=== PATIENT | female | born 1945 | race American Indian/Alaskan Native ===

== ENCOUNTER 2018-11-25 02:03 | Inpatient (IN) | payer MEDICARE ==
[2018-11-25 09:38] LABS: Chol/HDL Ratio 2.38 %
--- NOTE | 2018-11-25 11:07 | Consultation ---
History of Present Illness - Reason for Consult Consult date: 11/25/18 Medical evaluation for inpatient [facility] - History of Present Illness Patient is a 73 yo woman with a history of hypertension, dyslipidemia, dementia, anxiety disorder, osteoporosis, CAD s/p CABG and I believe Afib on Eliquis (no prior old records in our EMR) who presents to [facility] for behavior modification. She appears calm but poor historian due to vagueness. She denies any pains or symptoms at this time. PMH: as hpi PSH: CABG, LHC SH: she denies tob/etoh use/illicit drug use FH: she denies any serious condition ROS: Constitutional: denies: fever ENT: denies: throat or neck pain Respiratory: denies: cough, shortness of breath Cardiovascular: denies: chest pain Endocrine: denies unexplained weight loss or gain Gastrointestinal: denies: abdominal pain, nausea Genitourinary: denies: dysuria Rectal: denies no incontinence, no bleeding, no itching, no discharge Musculoskeletal: denies swelling, myaglia, muscle weakness Skin: denies: rash Neurological: denies: headache Hematological/Lymphatic: denies: easy bleeding or easy bruising Allergic/Immunologic: no urticaria, no allergic rhinitis, no anaphylaxis Psych: denies SI/HI Medications and Allergies Allergies Allergy/AdvReac Type Severity Reaction Status Date / Time Sulfa (Sulfonamide AdvReac Intermediate Diarrhea Verified 11/25/18 02:52 Antibiotics) donepezil [From Aricept] AdvReac Unknown Unknown Verified 11/25/18 02:53 Home Medications Medication Instructions Recorded Confirmed Last Taken Type ALPRAZolam [Xanax TAB] 1 mg PO BID PRN 11/25/18 11/25/18 Unknown History Acetaminophen/Diphenhydramine mg PO HS PRN 11/25/18 Unknown History Alendronate Sodium [Fosamax] 70 mg PO QWEEK 11/25/18 11/25/18 Unknown History Aspirin EC 81 mg PO DAILY 11/25/18 11/25/18 1 Day Ago History ~11/24/18 81 Dextromethorphan HBr/Quinidine 10 - 20 mg PO Q12HR 11/25/18 11/25/18 Unknown History [Nuedexta 20-10 mg Capsule] Eliquis 5 mg PO BID 11/25/18 11/25/18 1 Day Ago History ~11/24/18 5 mg ISOSORBIDE MONOnitrate [Imdur ER] 30 mg PO DAILY 11/25/18 11/25/18 1 Day Ago History ~11/24/18 30 mg Lisinopril 10 mg PO DAILY 11/25/18 11/25/18 1 Day Ago History ~11/24/18 10 mg Memantine [Namenda] 10 mg PO BID 11/25/18 11/25/18 1 Day Ago History ~11/24/18 Metoprolol Tartrate 25 mg PO BID 11/25/18 11/25/18 1 Day Ago History ~11/24/18 Pravastatin Sodium 40 mg PO QHS 11/25/18 11/25/18 1 Day Ago History ~11/24/18 Quetiapine Fumarate [SEROquel] 25 mg PO BID 11/25/18 11/25/18 1 Day Ago History ~11/24/18 Sennosides Tab [Senokot] 8.6 mg PO PRN 11/25/18 11/25/18 Unknown History hydrALAZINE [Apresoline TAB] 25 mg PO TID 11/25/18 11/25/18 1 Day Ago History ~11/24/18 Exam - Physical Exam Narrative exam: Gen: thin frail, NAD, Awake, Alert, Orientated x 2, missed name of [facility] HEENT: NCAT, EOMI, PERRL, OP Clear Neck: supple, no adenopathy, no thyromegaly, no JVD CVS/Heart: irregular irregular, normal S1S2, pulses present bilaterally Chest/Lungs: CTA B, Symmetrical chest expansion, good air entry bilaterally GI/Abdomen: soft, NTND, good bowel sounds, no guarding or rebound /Bladder: no suprapubic tenderness, no CVA or paraspinal tenderness Extermity/Skin: no c/c/e, no obvious rash MSK: FROM x 4 Neuro: CN 2-12 grossly intact, no new focal deficits Psych: calm - Constitutional Vitals: Temp Pulse Resp BP Pulse Ox 98.0 F 103 H 17 131/62 98 11/25/18 10:10 11/25/18 10:10 11/25/18 10:10 11/25/18 10:10 11/25/18 10:10 Results - Labs Labs: Abnormal lab results 11/25/18 Range/Units 09:05 HDL Cholesterol 68 H (40-59) mg/dL Assessment and Plan Patient is a 73 yo woman with a history of hypertension, dyslipidemia, dementia, anxiety disorder, osteoporosis, CAD s/p CABG and I believe Afib on Eliquis (no prior old records in our EMR) who presents to [facility] for behavior modification. She appears calm but poor historian due to vagueness. She denies any pains or symptoms at this time. Dementia with behavior disturbances: Aricept is listed as an allergy and just on Namenda monotherapy, [facility] to manage Hypertension: continue Metoprolol, hydralazine, imdur, and lisinopril, get baseline Labs Osteoporosis: continue Fosamax Afib: continue Eliquis and Metoprolol, get baseline EKG CAD s/p CABG: continue Asa, metoprolol and statin, get baseline cbc on ASA and Eliquis to screen for anemia Dyslipidemia: continue Statin, check TSH Home medication reconciliation done Thank you for the consult
[2018-11-25] MEDS ORDERED: NON-FORMULARY (Aspirin Ec 81 MG) PO SCH (11:30)
[2018-11-25] MEDS ORDERED: NON-FORMULARY (Lisinopril 10 MG) PO SCH (11:30)
[2018-11-25] MEDS ORDERED: NON-FORMULARY (Metoprolol Tartrate 25 MG) PO SCH (11:30)
[2018-11-25 11:56] LABS: Hematocrit 31.2 % (30.3-42.9); Hemoglobin 9.7 gm/dl (10.1-14.3); Mean Corpuscular HGB Conc 31 % (30-34); Mean Corpuscular Volume 75 fl (79-97); Platelet Count 157 K/mm3 (140-440); Red Blood Count 4.19 M/mm3 (3.65-5.03); Red Cell Distribution Width 18.6 % (13.2-15.2)
[2018-11-25] MEDS ORDERED: SENOKOT PO SCH (12:00)
[2018-11-25 12:03] LABS: Mean Corpuscular Hemoglobin 23 pg (28-32)
[2018-11-25 12:26] LABS: Alanine Aminotransferase 30 units/L (7-56); Albumin 4.1 g/dL (3.9-5); BUN/Creatinine Ratio 20; Blood Urea Nitrogen 16 mg/dL (7-17); Hemolysis Index 3
[2018-11-25] MEDS: APRESOLINE PO SCH ×2 (13:27→21:12)
[2018-11-25] MEDS: ZESTRIL PO SCH (13:27)
[2018-11-25] MEDS: LOPRESSOR PO SCH ×2 (13:37→21:10)
--- NOTE | 2018-11-25 16:59 | History and Physical Report ---
GP History & Physical - History of Present Illness Date of admission: 11/24/18 Date of Examination: 11/25/18 Reason for Admission: Danger to self, Danger to others, Unable to care for self Chief Complaint: I don't know why I am here History of Present Illness: Patient is a 73 yo woman with a history of hypertension, dyslipidemia, dementia, anxiety disorder, osteoporosis, CAD s/p CABG and Afib on Eliquis who presents to [facility] for aggressive behavior, delusions and inability to care for self. The patient is reportedly aggressive towards her at home. is overwhelmed and unable to care for her, hence family is seeking Prison placement. Per medical records, the patient make allegations that her dates other women, he parties 3 to 4 times a week, alleges he left for a constitution party W ed night and did not return for 3 days. In my interview with the patient, she states that she does not know why she is here. She is confused, oriented to place and person, denies SI/HI/AVH. She is suspicious of her plotting against her but did not elaborate. She reports sleeping and eating well. Legal Status: Voluntary Patient Problems: Current Active Problems Dementia, Alzheimer's, with behavior disturbance (Acute) Reaction to Hospitalization: Accepting Substance History - Substance History Drug Use: none Hx Tobacco Use: No Alcohol Use: No Past psychiatric history - Past Medical History Past Medical History: atrial fib, CAD, hypertension, hyperlipidemia - past Psychiatric treatment and history Psych: Anxiety - Social History Social history: , lives with family Review of Systems ROS unobtainable: due to mental status Results - Results Labs/Vitals: Laboratory Last Values WBC 5.3 K/mm3 (4.5-11.0) 11/25/18 11:38 RBC 4.19 M/mm3 (3.65-5.03) 11/25/18 11:38 Hgb 9.7 gm/dl (10.1-14.3) L 11/25/18 11:38 Hct 31.2 % (30.3-42.9) 11/25/18 11:38 MCV 75 fl (79-97) L 11/25/18 11:38 MCH 23 pg (28-32) L 11/25/18 11:38 MCHC 31 % (30-34) 11/25/18 11:38 RDW 18.6 % (13.2-15.2) H 11/25/18 11:38 Plt Count 157 K/mm3 (140-440) 11/25/18 11:38 Sodium 145 mmol/L (137-145) 11/25/18 11:38 Potassium 4.0 mmol/L (3.6-5.0) 11/25/18 11:38 Chloride 109.2 mmol/L (98-107) H 11/25/18 11:38 Carbon Dioxide 24 mmol/L (22-30) 11/25/18 11:38 16 mmol/L 11/25/18 11:38 BUN 16 mg/dL (7-17) 11/25/18 11:38 0.8 mg/dL (0.7-1.2) 11/25/18 11:38 Estimated GFR > 60 ml/min 11/25/18 11:38 20 % 11/25/18 11:38 Glucose 101 mg/dL (65-100) H 11/25/18 11:38 4.9 % (4-6) 11/25/18 09:05 Calcium 9.0 mg/dL (8.4-10.2) 11/25/18 11:38 0.40 mg/dL (0.1-1.2) 11/25/18 11:38 AST 33 units/L (5-40) 11/25/18 11:38 ALT 30 units/L (7-56) 11/25/18 11:38 59 units/L (35-129) 11/25/18 11:38 6.9 g/dL (6.3-8.2) 11/25/18 11:38 4.1 g/dL (3.9-5) 11/25/18 11:38 1.5 % 11/25/18 11:38 Triglycerides 81 mg/dL (2-149) 11/25/18 09:05 Cholesterol 162 mg/dL (50-199) 11/25/18 09:05 89 mg/dL (50-130) 11/25/18 09:05 68 mg/dL (40-59) H 11/25/18 09:05 2.38 % 11/25/18 09:05 TSH 3.670 mlU/mL (0.270-4.200) 11/25/18 11:38 Last Vital Signs Temp 98.0 F 11/25/18 10:10 Pulse 103 H 11/25/18 13:37 Resp 17 11/25/18 10:10 BP 131/62 11/25/18 13:37 Pulse Ox 98 11/25/18 10:10 Physical Examination - Constitutional Vitals: Vital Signs Temp Pulse Resp BP Pulse Ox 98.0 F 103 H 17 131/62 98 11/25/18 10:10 11/25/18 13:37 11/25/18 10:10 11/25/18 13:37 11/25/18 10:10 Temperature -Last 24 Hours Temperature 98.0 F Temperature 98.0 F General appearance: Present: no acute distress - EENT Eyes: Present: PERRL, EOM intact ENT: hearing intact, clear oral mucosa - Neck Neck: Present: supple, normal ROM - Respiratory Respiratory effort: normal Mental Status Exam - Vital signs Last Vital Signs Temp 98.0 F 11/25/18 10:10 Pulse 103 H 11/25/18 13:37 Resp 17 11/25/18 10:10 BP 131/62 11/25/18 13:37 Pulse Ox 98 11/25/18 10:10 - Exam Orientation: place, person Affect: anxious Mood: congruent with affect Thought content: delusions Thought Process: Disorganized Perceptions: none Speech: normal rate and pattern Concentration: distractible Motor activity: normal Level of consciousness: alert Memory: Recent Impaired, Remote Impaired Sleep Symptoms: None Interaction: cooperative Assessment and Plan - Psychiatric problem (1) Dementia, Alzheimer's, with behavior disturbance Current Visit: Yes Status: Acute plan to address problem: Patient will be admitted for inpatient psychiatric evaluation, medication adjustment and close monitoring The patient's behavior, mood, sleep and appetite will be closely monitored. Patient will be enrolled in individual and group therapeutic sessions and encouraged to attend. Patient will be provided with a safe and structured environment. Patient's physical health needs will be addressed by the Hospitalist. Social Assessment will be completed and the Certified Novell Engineer will work with patient and family to ensure a suitable and safe disposition Medication adjustment will be made as clinically indicated Physician Certification - Certification Statement Physician Certification Statement: This is an acknowledgement statement that KAR MC is a 73 year old F who requires inpatient psychiatric admission for treatment which could re asonably be expected to improve the patient's condition for behavioral disturbance in Dementia Estimated period of time patient will need to remain in the hospital: 7 days Plan for post-hospital care: Out-patient care
[2018-11-25] MEDS: PRAVACHOL PO SCH (21:10)
[2018-11-25] MEDS: ELIQUIS PO SCH (21:12)
[2018-11-25] MEDS: NAMENDA PO SCH (21:12)
[2018-11-25] MEDS ORDERED: NON-FORMULARY (Pravastatin Sodium 40 MG) PO SCH (22:00)
[2018-11-25] MEDS ORDERED: NON-FORMULARY (Eliquis 5 MG) PO SCH (22:00)
[2018-11-25] MEDS ORDERED: NON-FORMULARY (Quetiapine Fumarate [Seroquel] 25 MG) PO SCH (22:00)
[2018-11-26] MEDS: APRESOLINE PO SCH ×2 (09:36→21:20)
[2018-11-26] MEDS: ZESTRIL PO SCH (09:36)
[2018-11-26] MEDS: ELIQUIS PO SCH ×2 (09:37→21:49)
[2018-11-26] MEDS: NAMENDA PO SCH ×2 (09:37→21:19)
[2018-11-26] MEDS: LOPRESSOR PO SCH ×2 (09:38→21:20)
[2018-11-26] MEDS: IMDUR PO SCH (10:07)
[2018-11-26] MEDS: HALFPRIN EC PO SCH (10:11)
--- NOTE | 2018-11-26 15:43 | Progress Note ---
Assessment and Plan Assessment and plan: Patient is a 73 yo woman with a history of hypertension, dyslipidemia, dementia, anxiety disorder, osteoporosis, CAD s/p CABG, PPM and I believe Afib on Eliquis (no prior old records in our EMR) who presents to [facility] for behavior modification. She appears calm but poor historian due to vagueness. She denies any pains or symptoms at this time. Dementia with behavior disturbances: Aricept is listed as an allergy and just on Namenda monotherapy, [facility] to manage Hypertension: continue Metoprolol, hydralazine, imdur, and lisinopril, get baseline Labs Osteoporosis: continue Fosamax Afib: continue Eliquis and Metoprolol, get baseline EKG==>atrial paced CAD s/p CABG: continue Asa, metoprolol and statin, get baseline cbc on ASA and Eliquis to screen for anemia Dyslipidemia: continue Statin, check TSH=>normal Anemia, no baseline and no signs of bleeding, so appears chronic: repeat CBC in am Home medication reconciliation done History Interval history: Patient was seen and examined. Follow-up on current diagnosis. No overnight events reported to me. Patient denies any chest pain, shortness breath, nausea/vomiting or severe headaches. Imaging, nursing note, chart, labs and old chart reviewed. Discussed with patient. Hospitalist Physical - Physical exam Narrative exam: Gen: thin frail, NAD, Awake, Alert, Orientated x 2, [facility] HEENT: NCAT, EOMI, PERRL, OP Clear Neck: supple, no adenopathy, no thyromegaly, no JVD CVS/Heart: irregular irregular, normal S1S2, pulses present bilaterally Chest/Lungs: CTA B, Symmetrical chest expansion, good air entry bilaterally GI/Abdomen: soft, NTND, good bowel sounds, no guarding or rebound /Bladder: no suprapubic tenderness, no CVA or paraspinal tenderness Extermity/Skin: no c/c/e, no obvious rash MSK: FROM x 4 Neuro: CN 2-12 grossly intact, no new focal deficits Psych: calm - Constitutional Vitals: Temp Pulse Resp BP Pulse Ox 98.1 F 58 L 18 131/53 95 11/26/18 07:51 11/26/18 09:36 11/26/18 07:51 11/26/18 10:07 11/26/18 07:51 Results - Labs CBC & Chem 7: 11/25/18 11:38 11/25/18 11:38 Labs: Laboratory Last Values WBC 5.3 K/mm3 (4.5-11.0) 11/25/18 11:38 RBC 4.19 M/mm3 (3.65-5.03) 11/25/18 11:38 Hgb 9.7 gm/dl (10.1-14.3) L 11/25/18 11:38 Hct 31.2 % (30.3-42.9) 11/25/18 11:38 MCV 75 fl (79-97) L 11/25/18 11:38 MCH 23 pg (28-32) L 11/25/18 11:38 MCHC 31 % (30-34) 11/25/18 11:38 RDW 18.6 % (13.2-15.2) H 11/25/18 11:38 Plt Count 157 K/mm3 (140-440) 11/25/18 11:38 Sodium 145 mmol/L (137-145) 11/25/18 11:38 Potassium 4.0 mmol/L (3.6-5.0) 11/25/18 11:38 Chloride 109.2 mmol/L (98-107) H 11/25/18 11:38 Carbon Dioxide 24 mmol/L (22-30) 11/25/18 11:38 16 mmol/L 11/25/18 11:38 BUN 16 mg/dL (7-17) 11/25/18 11:38 0.8 mg/dL (0.7-1.2) 11/25/18 11:38 Estimated GFR > 60 ml/min 11/25/18 11:38 20 % 11/25/18 11:38 Glucose 101 mg/dL (65-100) H 11/25/18 11:38 4.9 % (4-6) 11/25/18 09:05 Calcium 9.0 mg/dL (8.4-10.2) 11/25/18 11:38 0.40 mg/dL (0.1-1.2) 11/25/18 11:38 AST 33 units/L (5-40) 11/25/18 11:38 ALT 30 units/L (7-56) 11/25/18 11:38 59 units/L (35-129) 11/25/18 11:38 6.9 g/dL (6.3-8.2) 11/25/18 11:38 4.1 g/dL (3.9-5) 11/25/18 11:38 1.5 % 11/25/18 11:38 Triglycerides 81 mg/dL (2-149) 11/25/18 09:05 Cholesterol 162 mg/dL (50-199) 11/25/18 09:05 89 mg/dL (50-130) 11/25/18 09:05 68 mg/dL (40-59) H 11/25/18 09:05 2.38 % 11/25/18 09:05 TSH 3.670 mlU/mL (0.270-4.200) 11/25/18 11:38 Active Medications - Current Medications Current Medications: Generic Name Dose Route Start Last Admin Trade Name Saloni PRN Reason Stop Dose Admin Alendronate Sodium 70 mg 12/01/18 07:30 Fosamax PO We@0730 [facility] Apixaban 5 mg 11/25/18 22:00 11/26/18 09:37 Eliquis PO 5 mg Q12HR KELLY Administration Aspirin 81 mg 11/26/18 10:00 11/26/18 10:11 Halfprin Ec PO 81 mg QDAY KELLY Administration Divalproex Sodium 250 mg 11/26/18 22:[address] PO BID KELLY Hydralazine HCl 25 mg 11/25/18 14:00 11/26/18 09:36 Apresoline PO 25 mg TID KELLY Administration Isosorbide Mononitrate 30 mg 11/26/18 10:00 11/26/18 10:07 Imdur PO 30 mg DAILY KELLY Administration Lisinopril 10 mg 11/25/18 11:30 11/26/18 09:36 Zestril PO 10 mg QDAY KELLY Administration Memantine 10 mg 11/25/18 22:00 11/26/18 09:37 Namenda PO 10 mg BID KELLY Administration Metoprolol Tartrate 25 mg 11/25/18 11:30 11/26/18 09:38 Lopressor PO 25 mg BID KELLY Administration Pravastatin Sodium 40 mg 11/25/18 22:00 11/25/18 21:10 Pravachol PO 40 mg QHS KELLY Administration Quetiapine Fumarate 25 mg 11/25/18 22:00 11/26/18 10:25 Seroquel PO 25 mg BID KELLY Administration Risperidone 0.5 mg 11/26/18 22:00 Risperdal PO BID KELLY Senna 8.6 mg 11/25/18 12:00 11/25/18 13:27 Senokot PO 8.6 mg PRN KELLY Administration
[2018-11-26] MEDS: PRAVACHOL PO SCH (21:19)
[2018-11-26] MEDS: RisperDAL PO SCH (21:21)
[2018-11-27] MEDS: RisperDAL PO SCH ×2 (09:53→21:10)
[2018-11-27] MEDS: ZESTRIL PO SCH (09:53)
[2018-11-27] MEDS: ELIQUIS PO SCH ×2 (09:54→21:13)
[2018-11-27] MEDS: HALFPRIN EC PO SCH (09:54)
[2018-11-27] MEDS: IMDUR PO SCH (09:54)
[2018-11-27] MEDS: NAMENDA PO SCH ×2 (09:55→21:10)
[2018-11-27] MEDS: APRESOLINE PO SCH ×3 (09:55→20:00)
[2018-11-27] MEDS: LOPRESSOR PO SCH ×2 (09:56→21:10)
[2018-11-27 10:07] LABS: Hematocrit 28.4 % (30.3-42.9); Hemoglobin 8.8 gm/dl (10.1-14.3); Mean Corpuscular HGB Conc 31 % (30-34); Mean Corpuscular Volume 75 fl (79-97); Platelet Count 162 K/mm3 (140-440); Red Blood Count 3.78 M/mm3 (3.65-5.03); Red Cell Distribution Width 18.3 % (13.2-15.2)
[2018-11-27 10:26] LABS: Mean Corpuscular Hemoglobin 23 pg (28-32)
[2018-11-27 12:58] LABS: Iron 18 ug/dL (37-170); Total Iron Binding Capacity 328 mcg/dL (250-450)
--- NOTE | 2018-11-27 12:58 | Progress Note ---
Subjective Date of service: 11/26/18 Principal diagnosis: Dementia with behavioral disturbance Subjective Comment: The patient is confused and delusional. She continues to accuse her of plotting against her and cheating on her with several women. Objective - Criteria for Continued Treatment Criteria for Continued Treatment: Improving Level of Functioning, Stablizing Level of Functioning, Improving Emotional/Socia - Mental Status Mental Status: Oriented x [address] - Objective Observation Participation Level: Minimal Assessment and Plan - Patient Problems (1) Dementia, Alzheimer's, with behavior disturbance Current Visit: Yes Status: Acute Plan to address problem: Patient will be admitted for inpatient psychiatric evaluation, medication adjustment and close monitoring The patient's behavior, mood, sleep and appetite will be closely monitored. Patient will be enrolled in individual and group therapeutic sessions and encouraged to attend. Patient will be provided with a safe and structured environment. Patient's physical health needs will be addressed by the Hospitalist. Social Assessment will be completed and the Senior Logistics Manager will work with patient and family to ensure a suitable and safe disposition Medication adjustment will be made as clinically indicated Will discontinue Seroquel, Nuedexta and Xanax Will start Risperidone 0.5mg bid for psychosis and Depakote 250mg tid for mood.
--- NOTE | 2018-11-27 13:02 | Event Note ---
Date: 11/27/18 full consult dictated - per pt presented to [facility] after [facility] w/ sever anemia, transfused, had egd/colon, told stomach benign lesion and later returned and had 'surgery' for mass removal - since then no GI issues - would get records from [facility] - no plans to scope - will follow for now
--- NOTE | 2018-11-27 13:03 | Progress Note ---
Subjective Date of service: 11/27/18 Principal diagnosis: Dementia with behavioral disturbance Subjective Comment: The patient is confused and delusional. She continues to accuse her of plotting against her and cheating on her with several women. Objective - Criteria for Continued Treatment Criteria for Continued Treatment: Improving Level of Functioning, Stablizing Level of Functioning, Improving Emotional/Socia - Mental Status Mental Status: Oriented x [address] - Objective Observation Participation Level: Moderate Assessment and Plan - Patient Problems (1) Dementia, Alzheimer's, with behavior disturbance Current Visit: Yes Status: Acute Plan to address problem: Patient will be admitted for inpatient psychiatric evaluation, medication adjustment and close monitoring The patient's behavior, mood, sleep and appetite will be closely monitored. Patient will be enrolled in individual and group therapeutic sessions and encouraged to attend. Patient will be provided with a safe and structured environment. Patient's physical health needs will be addressed by the Hospitalist. Social Assessment will be completed and the Archivist Military History will work with patient and family to ensure a suitable and safe disposition Medication adjustment will be made as clinically indicated Seroquel, Nuedexta and Xanax were discontinued (11/26) Continue Risperidone 0.5mg bid for psychosis and Depakote 250mg tid for mood (11/26)
[2018-11-27] MEDS: PRAVACHOL PO SCH (21:12)
--- NOTE | 2018-11-28 09:30 | Progress Note ---
Subjective Date of service: 11/28/18 Principal diagnosis: Dementia with behavioral disturbance Subjective Comment: The patient is calm and pleasant; eating and sleeping well; compliant with medications and cooperative with cares. With regards to her accusation of her cheating on her, she states that she has moved on, that is in the past. She denies SI/HI/AVH. No reported or observed medication side effects. Objective - Criteria for Continued Treatment Criteria for Continued Treatment: Improving Level of Functioning, Stablizing Level of Functioning, Improving Emotional/Socia - Mental Status Mental Status: Alert - Objective Observation Participation Level: Full Assessment and Plan - Patient Problems (1) Dementia, Alzheimer's, with behavior disturbance Current Visit: Yes Status: Acute Plan to address problem: Patient will be admitted for inpatient psychiatric evaluation, medication adjustment and close monitoring The patient's behavior, mood, sleep and appetite will be closely monitored. Patient will be enrolled in individual and group therapeutic sessions and encouraged to attend. Patient will be provided with a safe and structured environment. Patient's physical health needs will be addressed by the Hospitalist. Social Assessment will be completed and the Switchboard Operator Assistant will work with patient and family to ensure a suitable and safe disposition Medication adjustment will be made as clinically indicated Seroquel, Nuedexta and Xanax were discontinued (11/26) Continue Risperidone 0.5mg bid for psychosis and Depakote 250mg tid for mood (11/26) Check Valproic acid level in am tomorrow.
[2018-11-28] MEDS: NAMENDA PO SCH ×2 (09:59→21:11)
[2018-11-28] MEDS: ZESTRIL PO SCH (09:59)
[2018-11-28] MEDS: HALFPRIN EC PO SCH (09:59)
[2018-11-28] MEDS: ELIQUIS PO SCH ×2 (10:01→21:13)
[2018-11-28] MEDS: IMDUR PO SCH (10:01)
[2018-11-28] MEDS: APRESOLINE PO SCH ×3 (10:02→21:12)
[2018-11-28] MEDS: RisperDAL PO SCH ×2 (10:03→21:13)
[2018-11-28] MEDS: LOPRESSOR PO SCH ×2 (10:37→21:12)
[2018-11-28] MEDS ORDERED: DULCOLAX PO ONE (11:00)
--- NOTE | 2018-11-28 12:58 | Consultation ---
REFERRING PHYSICIAN: Thompson Nixon M.D. INDICATION: Anemia. HISTORY OF PRESENT ILLNESS: The patient is a 73-year-old white female with history of hypertension, high cholesterol, dementia, anxiety disorder, and status post CABG. The patient also has a history of AFib, on Eliquis. The patient was admitted ____ for behavioral modification. Most of the history is through the patient's . The patient's reports right after Easter, the patient was noted to be severely anemic with a hemoglobin over 4. She subsequently was at [facility]. The patient's recalled she had a colonoscopy and what sounds like an endoscopy. She also received a blood transfusion. He reports that after evaluation, she was told that she had a " in her stomach. He reports that she subsequently a couple of weeks later had surgery for it and had that lesion removed from her stomach. He reports since that time, she has had no further bleeding. Denies any black tarry stools or melena. Denies any hematemesis. He reports no other specific complaints. The patient herself reports no signs of active bleeding or any other GI related problems or complaints. PAST MEDICAL HISTORY: 1. Hypertension. 2. High cholesterol. 3. Dementia. 4. Anxiety disorder. 5. Coronary artery disease status post CABG. 6. Status post " MEDICATIONS: Reviewed and updated in chart. ALLERGIES: No known drug allergies. SOCIAL HISTORY: Denies alcohol, tobacco or drug abuse. FAMILY HISTORY: Negative for colon cancer, IBD, or liver disease. REVIEW OF SYSTEMS: GENERAL: Reports mild weakness. HEENT: No visual complaints or tinnitus. PULMONARY: No shortness of breath. No cough. No chest pain. GASTROINTESTINAL: Reports no specific complaints. All points of 13-point review of systems otherwise negative. PHYSICAL EXAMINATION: VITAL SIGNS: Temperature of 98.4, pulse 83, respirations 18, and blood pressure 126/50. GENERAL: Fairly nourished female, in no acute distress. HEENT: Pupils equal, round and reactive. PULMONARY: Clear to auscultation bilaterally. CARDIOVASCULAR: Regular rate and rhythm. Normal S1, S2. ABDOMEN: Positive bowel sounds, soft. SKIN: No obvious rashes. LABORATORY DATA: Pertinent for white count of 4, hemoglobin and hematocrit of 8.8 and 28.4, and platelet count of 162. Chem-7 within normal limits. LFTs within normal limits. ASSESSMENT AND PLAN: A 73-year-old female who was admitted to Psych Unit for behavioral modification and past medical history as noted above. Reports through her that after [facility] had severe anemia, was transfused and had what sounds like an endoscopy and colonoscopy and was told that she had a benign lesion in her stomach, which subsequently was removed surgically per the patient's and required a 4-7 days' stay in the hospital after the surgical procedure. He reports since that time, she had been doing well with no further signs of bleeding. The patient and denied any signs of bleeding at this time. At this time, I think the most prudent thing is to get the previous records. She has shown no active signs of bleeding. Given the fact that she had what sounds like an endoscopy and colonoscopy earlier this year, it would be reluctant to proceed with any endoscopic evaluation. PLAN: 1. We will get records from recent admission at [facility], especially discharge summary. We will ask primary team to aid with this. 2. Follow hematocrit and as needed. 3. PPI daily. 4. No plans for endoscopic evaluation at this time. 5. We will follow for now. JOB# [id number] CAB/NTS
[2018-11-28] MEDS: PRAVACHOL PO SCH (21:12)
--- NOTE | 2018-11-29 08:01 | Progress Note ---
Subjective Date of service: 11/29/18 Principal diagnosis: Dementia with behavioral disturbance Subjective Comment: The patient is calm and pleasantly confused this morning. She is oriented to place (hospital) and person (doctor). She correctly states the year (2018) but not the month (June). She could not state the name of the current president of the [place] and does not know why she is in the hospital. She denies being suspicious of anyone including her family and her children. She states that her treats her nice and has never cheated on her with other women. She is eating and sleeping well; compliant with medications and cooperative with cares. She denies SI/HI/AVH. No reported or observed medication side effects. Objective - Criteria for Continued Treatment Criteria for Continued Treatment: Stablizing Level of Functioning - Mental Status Mental Status: Oriented x [address] - Objective Observation Participation Level: Full Assessment and Plan - Patient Problems (1) Dementia, Alzheimer's, with behavior disturbance Current Visit: Yes Status: Acute Plan to address problem: Patient will be admitted for inpatient psychiatric evaluation, medication adjustment and close monitoring The patient's behavior, mood, sleep and appetite will be closely monitored. Patient will be enrolled in individual and group therapeutic sessions and encouraged to attend. Patient will be provided with a safe and structured environment. Patient's physical health needs will be addressed by the Hospitalist. Social Assessment will be completed and the Flaking Roll Operator will work with patient and family to ensure a suitable and safe disposition Medication adjustment will be made as clinically indicated Seroquel, Nuedexta and Xanax were discontinued (11/26) Continue Risperidone 0.5mg bid for psychosis and Depakote 250mg tid for mood (11/26) Await result of Valproic acid level ordered for this morning Will discharge in am if she continues to do well.
[2018-11-29] MEDS: APRESOLINE PO SCH ×3 (10:05→20:07)
[2018-11-29] MEDS: ELIQUIS PO SCH ×2 (10:06→21:29)
[2018-11-29] MEDS: LOPRESSOR PO SCH ×2 (10:06→21:30)
[2018-11-29] MEDS: ZESTRIL PO SCH (10:07)
[2018-11-29] MEDS: RisperDAL PO SCH ×2 (10:07→21:30)
[2018-11-29] MEDS: HALFPRIN EC PO SCH (10:07)
[2018-11-29] MEDS: NAMENDA PO SCH ×2 (10:08→21:30)
[2018-11-29] MEDS: IMDUR PO SCH (10:09)
[2018-11-29] MEDS ORDERED: TYLENOL PO PRN (19:22)
[2018-11-29] MEDS: PRAVACHOL PO SCH (21:30)
[2018-11-30] MEDS: APRESOLINE PO SCH (08:19)
[2018-11-30 08:21] VITALS: BP 124/44
--- NOTE | 2018-11-30 09:53 | Progress Note ---
Subjective Date of service: 11/30/18 Principal diagnosis: Dementia with behavioral disturbance Subjective Comment: The patient is calm and pleasant this morning. She is fully oriented. She is eating and sleeping well; compliant with medications and cooperative with cares. She denies SI/HI/AVH. No reported or observed medication side effects. Patient feels excited going home today. With patient's consent, the Treatment team met with patient and her family - was present physically and patient's 2 daughters participated via telephone conference call. Education provided, questions and concerns addressed and supportive therapy provided during this meeting. Objective - Mental Status Mental Status: Alert - Objective Observation Participation Level: Full Assessment and Plan - Patient Problems (1) Dementia, Alzheimer's, with behavior disturbance Current Visit: Yes Status: Acute Plan to address problem: Discharge home today. Follow up with PCP and out-patient psychiatrist.
[2018-11-30] MEDS: IMDUR PO SCH (09:57)
[2018-11-30] MEDS: RisperDAL PO SCH (09:58)
[2018-11-30] MEDS: HALFPRIN EC PO SCH (09:58)
[2018-11-30] MEDS: ZESTRIL PO SCH (09:59)
[2018-11-30] MEDS: ELIQUIS PO SCH (09:59)
[2018-11-30] MEDS: NAMENDA PO SCH (10:00)
[2018-11-30] MEDS: LOPRESSOR PO SCH (10:00)
--- NOTE | 2018-11-30 10:11 | Discharge Summary ---
Providers - Providers Date of Admission: 11/25/18 03:12 Date of discharge: 11/30/18 Attending physician: RODOLFO NICK MD 11/25/18 02:57 Consult to Physician [CONS] Routine Comment: Consulting Provider: AMERICA HU Physician Instructions: Reason For Exam: new admission to psych 11/27/18 10:47 Consult to Physician [CONS] Routine Comment: Consulting Provider: LATA RICARDO Physician Instructions: Reason For Exam: Anemia Primary care physician: RODOLFO NICK MD Hospitalization Reason for admission: aggressive behavior, delusions and inability to care for self. Condition: Good Hospital course: The patient was provided inpatient psychiatric treatment with safe and supportive environment, group therapy, individual counseling, psychiatric medication, medication adjustment, adverse effect monitor, medical evaluation, medical treatment, social service assessment, family/social support meeting, placement assessment and psycho-education. The patients mood, anxiety, thoughts, stress management skill, cognition, impulse/anger control, motivation, understanding of disease, compliance to treatment and appreciation on family/social support are improved and stabilized. At the time of discharge, the patient had no suicidal ideas, no homicidal ideas, no aggressive thoughts, no endangering behavior and no debilitating adverse effects. The patient's family agreed on the treatment plan, understood the risk, benefit, alternative treatment, potential consequence of no treatment, and gave informed consent. The patient was advised to be compliant with medications, not to use drugs and not to drink alcohol. The patient understands that if suicidal ideas, homicidal ideas, or any endangering thoughts arise, the patient should immediately seek for emergent assistance including but not limited to crisis hot line and emergency room. Follow up with out-patient Psychiatrist and PCP within 14 - 21 days of discharge Disposition: DC-01 TO HOME OR SELFCARE Allergies/Adverse Reactions: Allergies Sulfa (Sulfonamide Antibiotics) Adverse Reaction (Intermediate, Verified 11/25/18 02:52) Diarrhea donepezil [From Aricept] Adverse Reaction (Unknown, Verified 11/25/18 02:53) Unknown Vital Signs: Last Vital Signs Temp 98.3 F 11/29/18 22:00 Pulse 91 H 11/30/18 10:00 Resp 18 11/29/18 22:00 BP 124/44 11/30/18 10:00 Pulse Ox 99 11/29/18 22:00 Last Lab: Laboratory Last Values WBC 4.0 K/mm3 (4.5-11.0) L 11/27/18 09:27 RBC 3.78 M/mm3 (3.65-5.03) 11/27/18 09:27 Hgb 8.8 gm/dl (10.1-14.3) L 11/27/18 09:27 Hct 28.4 % (30.3-42.9) L 11/27/18 09:27 MCV 75 fl (79-97) L 11/27/18 09:27 MCH 23 pg (28-32) L 11/27/18 09:27 MCHC 31 % (30-34) 11/27/18 09:27 RDW 18.3 % (13.2-15.2) H 11/27/18 09:27 Plt Count 162 K/mm3 (140-440) 11/27/18 09:27 Sodium 145 mmol/L (137-145) 11/25/18 11:38 Potassium 4.0 mmol/L (3.6-5.0) 11/25/18 11:38 Chloride 109.2 mmol/L (98-107) H 11/25/18 11:38 Carbon Dioxide 24 mmol/L (22-30) 11/25/18 11:38 16 mmol/L 11/25/18 11:38 BUN 16 mg/dL (7-17) 11/25/18 11:38 0.8 mg/dL (0.7-1.2) 11/25/18 11:38 Estimated GFR > 60 ml/min 11/25/18 11:38 20 % 11/25/18 11:38 Glucose 101 mg/dL (65-100) H 11/25/18 11:38 4.9 % (4-6) 11/25/18 09:05 Calcium 9.0 mg/dL (8.4-10.2) 11/25/18 11:38 Iron 18 ug/dL (37-170) L 11/27/18 12:14 TIBC 328 mcg/dL (250-450) 11/27/18 12:14 12.3 ng/mL (13.0-400.0) L 11/27/18 12:14 0.40 mg/dL (0.1-1.2) 11/25/18 11:38 AST 33 units/L (5-40) 11/25/18 11:38 ALT 30 units/L (7-56) 11/25/18 11:38 59 units/L (35-129) 11/25/18 11:38 6.9 g/dL (6.3-8.2) 11/25/18 11:38 4.1 g/dL (3.9-5) 11/25/18 11:38 1.5 % 11/25/18 11:38 Triglycerides 81 mg/dL (2-149) 11/25/18 09:05 Cholesterol 162 mg/dL (50-199) 11/25/18 09:05 89 mg/dL (50-130) 11/25/18 09:05 68 mg/dL (40-59) H 11/25/18 09:05 2.38 % 11/25/18 09:05 TSH 3.670 mlU/mL (0.270-4.200) 11/25/18 11:38 Valproic Acid 56.2 ug/mL (50-100) 11/29/18 08:24 - Discharge Diagnoses (1) Dementia, Alzheimer's, with behavior disturbance Status: Acute Core Measure Documentation - Palliative Care Palliative Care/ Comfort Measures: Not Applicable - Core Measures Any of the following diagnoses?: none Exam - Constitutional Vitals: Temp Pulse Resp BP Pulse Ox 98.3 F 91 H 18 124/44 99 11/29/18 22:00 11/30/18 10:00 11/29/18 22:00 11/30/18 10:00 11/29/18 22:00 General appearance: Present: no acute distress - EENT Eyes: Present: PERRL, EOM intact ENT: hearing intact, clear oral mucosa - Neck Neck: Present: supple, normal ROM - Respiratory Respiratory effort: normal Plan Activity: fall precautions Weight Bearing Status: Weight Bear as Tolerated Diet: regular Follow up with: RODOLFO NICK MD [Primary Care Provider] - 7 Days Prescriptions: risperiDONE [RisperDAL] 0.5 mg PO BID #60 tablet
[2018-12-01] MEDS ORDERED: FOSAMAX PO SCH (07:30)
== END 2018-11-30 11:25 | disposition home or self-care (01) | DRG 57 ==
LOC: 5A 03:12
PROVIDERS: ADMIT Psychiatry & Neurology Psychiatry; ATTEND Psychiatry & Neurology Psychiatry
DX: G30.9 Alzheimer's disease, unspecified (principal); F02.81 Dementia in other diseases classified elsewhere, unspecified severity, with behavioral disturbance; I10 Essential (primary) hypertension; I48.91 Unspecified atrial fibrillation; E78.5 Hyperlipidemia, unspecified; E78.00 Pure hypercholesterolemia, unspecified; D64.9 Anemia, unspecified; M81.0 Age-related osteoporosis without current pathological fracture; F41.9 Anxiety disorder, unspecified; I25.10 Atherosclerotic heart disease of native coronary artery without angina pectoris; Z95.1 Presence of aortocoronary bypass graft; Z79.01 Long term (current) use of anticoagulants; Z88.2 Allergy status to sulfonamides; Z88.8 Allergy status to other drugs, medicaments and biological substances; Z79.899 Other long term (current) drug therapy; Z79.82 Long term (current) use of aspirin
CPT/HCPCS: 36415; 80053; 80061; 80164; 82728; 83036; 83550; 84443; 85027; 93005; 93010; G0378; A9270-GY